=== PATIENT | female | born 1950 | race Hispanic/Latino ===

== ENCOUNTER 2025-01-10 06:06 | Observation (INO) | payer OTHER ==
[2025-01-05 09:04] LABS: IMMATURE GRANULOCYTE ABSOLUTE 0.02 K/uL (0-1); NUCLEATED RED BLOOD CELLS 0.0 % (0.0-0.19); PLATELET COUNT (AUTO) 159 K/uL (130-400); RED BLOOD CELL COUNT(AUTO) 2.94 MIL/uL (4.00-5.50); RED CELL DISTRIBUTION WIDTH 17.2 % (11.0-15.5); WHITE BLOOD COUNT (AUTO) 4.8 K/uL (4.8-10.8)
[2025-01-05 09:12] VITALS: BP 117/52; PULSE 53; RESP 15; TEMP 97.6
[2025-01-05 09:12] LABS: CREATININE 4.3 mg/dL (0.5-1.0); GLOMERULAR FILTR. RATE CALC 10.0 mL/min (>90); GLUCOSE,RANDOM 199.0 mg/dL (70-105); SODIUM SERUM 131.0 mmol/L (136-145); UREA NITROGEN, BLOOD 30.0 mg/dL (7-18)
[2025-01-05 09:14] LABS: INR 1.14 (0.85-1.15)
--- NOTE | 2025-01-05 10:09 | HMCIMG ---
CHEST 1VW REASON: PRE OP COMPARISON: None. FINDINGS: Single view of the chest was obtained. Lungs are clear. There is cardiomegaly with left ventricular contour.. There is no pulmonary vascular congestion. Mediastinum and bony thorax appear unremarkable. There are 3 round density seen in left lower chest which may be in the breast. There are surgical clips in the right upper quadrant from prior cholecystectomy. IMPRESSION: 1. Cardiomegaly with no evidence of airspace consolidation or pulmonary venous congestion.. 2. 3 round densities seen in the left lower chest suggesting some breast lesion. I would recommend correlation with mammogram.
--- NOTE | 2025-01-05 10:45 | EKG ---
[facility] Test Date: 2025-01-05 Test Time: 08:50:47 Pat Name: YOAN KELLY Department: [facility] Room: Gender: F Lawyers: [id number] : 1950 Requested By: GABBY DEMPSEY Order Number: [id number] Reading MD: Carl Hughes Measurements Intervals [place] Rate: 51 P: 0 ID: [id number] QRS: -54 QRSD: 158 T: -70 QT: 523 QTc: 483 Interpretive Statements Sinus rhythm Prolonged ID interval RBBB and LAFB Abnrm T, consider ischemia, anterolateral lds No previous ECG available for comparison Electronically Signed On 01-06-2025 02:16:03 CDT by Carl Hughes Please click the below link to view image of tracing.
--- NOTE | 2025-01-09 13:53 | NUR ---
REPORT DR DEMPSEY REVIEWED BMP/CBC/BNP/CXR. OK TO PROCEED. PT TO FOLLOW UP WITH PCP IN REFERENCE TO CXR
[~2025-01-10] VITALS: Ht 157.5 cm; Wt 85.6 kg
[2025-01-10] VITALS (13 sets, daily range): BP systolic 112–137; BP diastolic 46–66; PULSE 51–79; RESP 9–18; TEMP 97–98.8; O2SAT 98–99
[~2025-01-10 06:06] MED LIST: AMLO-257 PO; FEXO1TAB8 PO; LINA145C PO; LOSA50TA64 PO; METO25TA3 PO; MONT-39 PO; ROSU10TA72 PO; SEVE800T7 PO
[2025-01-10] MEDS: 0.9% NACL 500ML IV.SOLN 500 ML IV SCH (06:15)
[2025-01-10] MEDS ORDERED: LIDOCAINE HCL 400MG/20ML VIAL ONE (07:14)
[2025-01-10] MEDS ORDERED: NITROGLYCERIN 50MG VIAL ONE (07:15)
[2025-01-10] MEDS ORDERED: HEParin-NS 1,000 UNIT/500 ML 500 ML IV ONE (07:15)
[2025-01-10] MEDS ORDERED: IOHEXOL 350 MG/ML 100ML INFUS..BTL IV ONE (07:18)
[2025-01-10] MEDS ORDERED: SODIUM BICARB 50MEQ 50ML VIAL 50 ML ONE (07:18)
[2025-01-10] MEDS ORDERED: MIDAZOLAM HCL 1 MG/ML 2ML VIAL ONE (07:42)
[2025-01-10] MEDS ORDERED: IOHEXOL-350 50ML VIAL IV ONE (08:13)
[2025-01-10] MEDS ORDERED: IOHEXOL-350 75 ML VIAL IV ONE (08:14)
--- NOTE | 2025-01-10 09:02 | PRN ---
Right And Left Heart Catheterization, Left Ventricular Cine Angiogram And Coronary Arteriogram Indication: Dyspnea And Chest Pressure, Left Main Calcification Technique: Patient was brought to the lab in a fasting state after informed consent and sedated with 1 mg Versed and 50 mcg fentanyl, each of which was repeated as needed. See computerized notes for details of conscious sedation and monitoring. Under local anesthesia with 1% lidocaine using fluoroscopic and ultrasound guidance with micropuncture technique the right common femoral artery and vein were entered percutaneously and a seven Kenyan sheath was inserted into the vein, a six Kenyan sheath into the artery. Right heart catheterization was carried out with a seven Kenyan Effie-Roberta S curve balloon tip catheter and pressures were measured at RA, RV, PA and PCW positions. The catheter was then removed. A six Kenyan angled pigtail was used to cannulate the left ventricle and left ventricular cine angiography was performed in [place] projection after measurement of pressures. A pullback recording was then obtained. An exchange was made for a six Kenyan 4 cm left Jose which was used to engage the left main obtain left coronary angiograms in multiple projections. An exchange was made for a six Kenyan 4 cm right Jose which was imaging engage the right coronary and obtain right coronary angiograms in multiple projections. At the conclusion of the procedure venotomy was closed with Vascade and arteriotomy was closed with Angio-Seal. No complications occurred. The patient was transferred to the room in stable condition. Results: Hemodynamics: LVEDP was 20 before angiography on 12 after. LV systolic pressure was 122 with aortic root pressure 123/37, mean 67. Mean pulmonary capillary wedge pressure was 12 with A-wave seven and V-wave 22. Pulmonary artery pressure was 36/14, mean 20. Right ventricular systolic pressure was 36 Mean right atrial pressure was 16 with A-wave 13 and V-wave 24. Ventriculography: Left ventricular cine angiography demonstrated normal left ventricular size and shape with symmetric wall motion and normal mitral valve function. Ejection fraction is estimated 71% by planimetry. Angiography: This is a right-dominant system. The right coronary is a large diameter vessel that supplies a posterior descending and a posterolateral. This vessel is notable for segmental calcified 30% plaque at the acute margin but there were no high-grade stenoses. The left main is large diameter and heavily calcified and this calcified lesion extends into the origin of the LAD and circumflex. The left main is narrowed by greater than 80%, the LAD by in the circumflex by 90%. The left anterior descending, apart from the ostial 80% lesion mentioned above, is also notable for a 70% ostial stenosis of the 1st diagonal branch. Otherwise the LAD system is calcified but free of additional high-grade disease. The circumflex supplies a sizable 1st obtuse marginal with heavy calcified 90% segmental ostial stenosis. The 2nd obtuse marginal is small in the terminal branch of the circumflex is medium size and courses over the inferolateral wall toward the apex. Conclusions: Left main and two-vessel coronary disease. Chronic diastolic heart failure. Prominent V-wave on the right atrium pressure suggest severe tricuspid regurgitation. V-wave on PCW tracing is not associated with significant mitral regurgitation GABBY DEMPSEY MD Jan 10, 2025 09:02
--- NOTE | 2025-01-10 09:49 | NUR ---
Patient remains stable with VS wnl. SB evident with cardiac monitors intact. Right Femoral site clean, dry without sign of bleeding, bruising of hematoma. Pulses intact to BLE's. Patient denies c/o pain or distress. Notified HS and Registration of admission status. Mark Alvarez updated in full. SR's up x 2. Call light in reach. Addendum: 01/10/25 at 1012 by GUANAKITO BROOKS RN RN Reported off in full to Jarad Mueller RN. [facility] room 225.
--- NOTE | 2025-01-10 12:41 | HP ---
[facility] HISTORY AND PHYSICAL Date of Service: Jan 10, 2025 Time of Service: 12:32 HISTORY OF PRESENT ILLNESS: Date of service: 01/10/2025 patient [place] [facility] [place] [facility], This is 74-year-old female with underlying history of ESRD maintained on hemodialysis for the past six years, hypertension, hyperlipidemia, type 2 diabetes mellitus, peripheral vascular disease, carotid artery disease, chronic right shoulder pain with right shoulder rotator cuff injury over the last one year, who is currently admitted status post coronary angiogram and cardiac catheterization by Dr. Thayer. Patient has underlying history of crescendo pattern of dyspnea and fatigue on exertion over the last 5-6 months. Patient states that she has only able to ambulate less than a block before she gets short of breath. She denies any significant chest pain or chest pressure, dizziness, syncope or presyncope. She uses a walker to ambulate. Patient has been on hemodialysis therapy over the last six years. She is followed by Dr. Palmer with Nephrology as outpatient, she has been maintained on Thursday, Thursday, Thursday hemodialysis. Last HD session was yesterday. Patient denies any previous history of seizures, or stroke. Patient on cardiac catheterization was found to have left main and two-vessel significant coronary artery disease with chronic diastolic heart failure. There was also possible suggestion of severe tricuspid regurgitation. Patient will be admitted under hospitalist service and consultation with Cardiovascular surgery has been requested. REVIEW OF SYSTEMS CONSTITUTIONAL: Denies fevers, chills, or night sweats. No unintentional weight loss reported. NEUROLOGICAL: Denies headache, amaurosis fugax, motor weakness, sensory deficit, vertigo/spinning sensation, gait abnormalities, or tremors. ENT: No hearing loss, otalgia, otorrhea, rhinitis, rhinorrhea, hoarseness, or sore throat. CARDIOVASCULAR: Recent history of dyspnea on exertion with minimal ambulation, denies chest pain or chest pressure, denies any syncope or presyncopal symptoms PULMONARY: Denies any shortness of breath, cough, phlegm/sputum, hemoptysis, pleuritic chest pain. SLEEP: Denies morning headaches, daytime somnolence or napping. Denies difficulty falling asleep, staying asleep, waking from sleep. Denies knowledge of snoring. GASTROINTESTINAL: Denies any type of dysphagia to either liquids or solids. Denies nausea, vomiting, pyrosis, early satiety, abdominal pain, diarrhea, constipation, or changes in stool consistency or caliber. Denies coffee-ground emesis, hematemesis, hematochezia, or melanotic stools. GENITOURINARY: Denies frequency, urgency, nocturia, hematuria or incontinence (Storage/Irritative symptoms.) Low urinary stream, straining to void, urinary intermittency or hesitancy, splitting of the voiding stream, terminal dribbling. ENDOCRINOLOGIC: Denies polyuria, polydipsia, polyphagia or heat/cold intolerances. HEMATOLOGIC: Denies thrombophilia/previous clots, or coagulopathy/bleeding disorders. ONCOLOGIC: Denies personal history of malignancy. DERMATOLOGIC: Denies rashes or pruritus. PSYCHIATRIC: Denies any suicidal or homicidal ideation. Denies hallucinations. PAST MEDICAL HISTORY: Previous medical history of hypertension, ESRD, seasonal allergies, hyperlipidemia, obstructive sleep apnea not on CPAP therapy, osteoarthritis, type 2 diabetes mellitus, peripheral vascular disease, vitamin B12 deficiency, degenerative joint disease of lumbar spine, osteopenia, carotid artery disease, recent history of abnormal coronary CT angiography which was done in 2024 PAST SURGICAL HISTORY: x1, left forearm AV fistula placement six years ago, history of cholecystectomy PAST SOCIAL HISTORY: Denies active smoking or alcohol consumption FAMILY HISTORY: Reports family history diabetes and hypertension and coronary artery disease in father and mother Allergies: No known drug allergies Home medications: Outpatient home medications include amlodipine 5 mg daily, Heydi once a day, mcg daily, losartan 50 mg daily, metoprolol mg at bedtime, montelukast sodium 10 mg at bedtime, rosuvastatin 10 mg at bedtime, sevelamer 2400 mg p.o. t.i.d. meals Coded Allergies: No Known Drug Allergies (Unverified Allergy, Unknown, 01/05/25) PHYSICAL EXAM GENERAL APPEARANCE: The patient is awake, alert, and oriented, in no acute cardiopulmonary distress. NEUROLOGICAL: Cranial nerves II-XII grossly intact. Neurological examination is nonfocal for the patient HEENT: Face is symmetric. Pupils are equal and reactive. Extraocular movements are intact. NECK: Supple. No JVD. No thyromegaly. No submental, submandibular, pre- /postauricular, occipital or supraclavicular lymphadenopathy. CHEST: Normal chest expansion. No Telemetry. LUNGS: Absence of any rales, rhonchi or any wheezing. CARDIOVASCULAR: Regular. S1 and S2 normal. No appreciable rubs, murmurs or gallops. ABDOMEN: Soft, nontender, and nondistended. There is no rebound, voluntary guarding, or rigidity. : Deferred. No Phillips. EXTREMITIES: Non-edematous and not cyanotic. No clubbing. Left forearm with AV fistula noted with bruit and thrill, trace edema noted of the lower extremities SKIN: No skin breakdown. Vital Sign (Last 24 Hours) 01/10/25 01/10/25 09:15 10:00 Temp 97.0 Pulse 53 Resp 10 B/P (MAP) 120/48 Pulse Ox 100 O2 Delivery Room Air LABS: Laboratory: Test 01/10/25 11:23 Range/Units Whole Blood Glucose 119 H 70-110 MG/DL Current Medications Medications (Trade) Dose Ordered Sig/Dany Route PRN Reason Start Time Stop Time Status Last Admin Dose Admin Acetaminophen (TYLenol 325MG TAB) 650 mg Q6H PRN PO MILD PAIN (1-3) 01/10/25 12:30 02/09/25 12:29 UNV Amlodipine Besylate (NorvASC 5MG TAB) 5 mg NOON PO 01/11/25 12:00 02/10/25 11:59 UNV Losartan Potassium (CozAAR 50 mg TAB) 50 mg DAILY PO 01/11/25 09:00 02/10/25 08:59 UNV Metoprolol Succinate (TopROL XL) 25 mg HS PO 01/10/25 21:00 02/09/25 20:59 UNV Miscellaneous Medication (Fexofenadine/ Pseudoephedrine (Heydi-D 24 Hour Tablet)) 1 each DAILY PO 01/11/25 09:00 02/10/25 08:59 UNV Miscellaneous Medication (Linaclotide (Linzess)) 72 mcg DAILY PO 01/11/25 09:00 02/10/25 08:59 UNV Miscellaneous Medication (Rosuvastatin Calcium ) 10 mg HS PO 01/10/25 21:00 02/09/25 20:59 UNV Miscellaneous Medication (Sevelamer Carbonate (Renvela)) 2,400 mg TIDMEALS PO 01/10/25 17:00 02/09/25 16:59 UNV Montelukast Sodium (SinguLAIR) 10 mg HS PO 01/10/25 21:00 02/09/25 20:59 UNV Ondansetron HCl (zoFRAN 4MG INJ) 4 mg Q6H PRN IVP NAUSEA/VOMITING 01/10/25 12:30 02/09/25 12:29 UNV Sodium Chloride 500 ml @ 0 mls/hr Q0M IV 01/10/25 06:30 02/09/25 06:29 01/10/25 06:15 20 MLS/HR DIAGNOSTICS / RADIOLOGY: None ASSESSMENT: Left main and significant two-vessel coronary artery disease status post cardiac catheterization/coronary angiogram by Dr. Thayer, Recent history of dyspnea on exertion with minimal ambulation, with recent abnormal outpatient coronary CT angiogram, POA History of hypertension, POA ESRD on Thursday, Thursday, Thursday hemodialysis, POA Hyperlipidemia, POA Peripheral vascular disease, POA Vitamin B12 deficiency, POA History of carotid artery disease, POA History of LAURA not on outpatient CPAP treatment, POA Obesity, POA History of vitamin B12 deficiency, POA History of chronic right shoulder pain from rotator cuff injury for about one year's, POA PLAN: Patient will continue with close admission in P[facility]U under telemetry monitoring Consultation with Cardiovascular surgery has been requested for evaluation of left main coronary artery disease and significant two-vessel CAD Patient to continue with scheduled hemodialysis session Continue with home medications including losartan 50 mg daily, metoprolol succinate 25 mg at bedtime, and amlodipine5 mg daily Continue with home dose of Crestor Continue with post cardiac catheterization recommendations by Dr. Thayer Consultation with Nephrology will be requested for HD therapy while inpatient Resume home medications once available All labs will be repeated in the morning Patient will be placed of fluid restrictions of 1.5 L daily We will obtain a chest x-ray for the morning as well as a 2D echocardiogram Prognosis: Guarded Plan of care was discussed with patient at bedside, Micha Garcia MD Advanced Care Planning: Which of the following were discussed: Hospice care: Yes __ No __ Therapeutic options: Yes __ No __ Advance directives: Yes __ No __ Other discussions: Discussed with who?: (Patient, family or surrogates) Voluntary nature of this service was explained to the patient? Yes __ No __ Amount of time spent: (can be from 16 to 44 minutes) Reviewed by Physician?: Yes __ No __ (if this service was performed by NPP) MICHA GARCIA MD Jan 10, 2025 12:41
--- NOTE | 2025-01-10 15:36 | HMCSR ---
APPROVED REPORT EXAM: Two-dimensional and M-mode echocardiogram with Doppler and color Doppler. INDICATION ICD: Coronary artery Disease 2D Dimensions RVDd5.8 cmLVEF(%)61.2 (>50%)LVED Vol(simp.)69.0 mL IVSd1.1 (0.7-1.1cm)FS(%)33 %LVES Vol(simp.)27.0 mL LVDd5.4 (3.8-5.6cm)LA (2D)5.7 (1.6-4.0cm)LVEF(%, simp.)61 % PWd1.3 (0.7-1.1cm)Ao Root(2D)2.8 (2.0-3.7cm)LA ESV INDEX (BP)51.53 mL/m2 IVSs1.1 cmLVOT diam2.3 (1.8-2.4cm) LVDs3.6 (2.5-4.0cm)IVC diam3.6 cm PWs1.6 cm Deformation Strain Apical 4-18.0 % Apical 2-18.0 % Apical 3-15.0 % Global Strain-17.0 % M-Mode Dimensions EPSS0.8 cm LA (MM)5.6 (1.6-4.0cm) Ao Root(MM)2.5 (2.0-3.7cm) Aortic Valve AoV Vmax2.1 m/Imelda Peak GR17.2 mmHgLVOT Vmax1.1 m/s AoV VTI0.4 mAo Mean GR9.0 mmHgLVOT VTI0.28 m ADELINA (VMAX)2.20 cm2AVA (VTI) 2.6 cm2 Mitral Valve MV E Kmoi587.6 cm/sDECEL Mnru908 ms MV A Vmax50.4 cm/sP 1/2 T80 ms E/A ratio2.4MVA (PHT)2.8 cm2 TDI E/E' Hwegxf60.8E/E' Rqxvxhv76.4 Medial E' Peak V5.21 cm/sLateral E' Peak V8.84 cm/s Pulmonary Valve PV Vmax1.1 m/sPV VTI0.29 mPV Mean GR2.3 mmHg PV Peak GR4.9 mmHgPI End Yael. Dre 112.7 cm/s Tricuspid Valve TR Vmax1.9 m/sRAP (EST) 15 neCoSERH44.4 mmHg TR Peak GR15.4 mmHg Left Ventricle Left ventricular cavity size is normal. There is normal left ventricular wall thickness. LVEF is 60-6 5%. Stage III diastolic dysfunction. Right Ventricle The right ventricle is severely dilated. LASVI 52mL/m2 The right ventricular systolic function is nor mal. Atria The left atrium is severely dilated. Cannot exclude PFO by color doppler. The right atrium is severel y dilated. Aortic Valve The aortic valve is calcified but opens well. No aortic regurgitation is present. There is no aortic valvular stenosis. Mitral Valve The mitral valve is mildly thickened. There is mild mitral annular calcification. Mitral regurgitatio n is mild. There is no mitral valve stenosis. Tricuspid Valve The tricuspid valve leaflets appear normal. There is severe tricuspid valve regurgitation by color do ppler. CW Doppler of the tricuspid regurgitation jet showing a low velocity triangular shape, typical of severe TR. RVSP 30mmHg. Pulmonic Valve The pulmonary valve is normal in structure and function. There is trace pulmonic valvular regurgitati on. Great Vessels The aortic root is normal in size. IVC is severely dilated and collapses <50% with inspiration. Pericardium No pericardial effusion. Other Information Quality : Technically difficult study due to body habitus Conclusion Left ventricular cavity size is normal. LVEF is 60-65%. Stage III diastolic dysfunction. The right ventricle is severely dilated. LASVI 52mL/m2 The right ventricular systolic function is normal. The left atrium is severely dilated. The right atrium is severely dilated. Cannot exclude PFO by color doppler. Mitral regurgitation is mild. There is severe tricuspid valve regurgitation by color doppler. CW Doppler of the tricuspid regurgi tation jet showing a low velocity triangular shape, typical of severe TR. RVSP 30mmHg. IVC is severely dilated and collapses <50% with inspiration. No pericardial effusion.
[2025-01-10] MEDS ORDERED: NITROGLYCERIN 0.4 MG SL TAB SL PRN (19:30)
[2025-01-10] MEDS ORDERED: GLUCAGON 1MG KIT 1 MG ML IM PRN (20:30)
[2025-01-10] MEDS ORDERED: DEXTROSE 50%-WATER 50 ML DISP.SYRIN IV PRN (20:30)
[2025-01-10] MEDS: LORATAdine/pseudophEPHEDrine 5/120 MG 1 EACH TAB.SR.12H PO SCH (20:42)
[2025-01-11] VITALS (21 sets, daily range): BP systolic 115–160; BP diastolic 42–65; PULSE 51–82; RESP 16–18; TEMP 97.8–98.6; O2SAT 99
[2025-01-11 05:34] LABS: NUCLEATED RED BLOOD CELLS 0.0 % (0.0-0.19); PLATELET COUNT (AUTO) 177.0 K/uL (130-400); RED BLOOD CELL COUNT(AUTO) 2.75 MIL/uL (4.00-5.50); RED CELL DISTRIBUTION WIDTH 16.6 % (11.0-15.5); WHITE BLOOD COUNT (AUTO) 5.1 K/uL (4.8-10.8)
[2025-01-11 05:51] LABS: ASPARTATE AMINOTRANSFERASE 21.0 U/L (10-37); CREATININE 6.7 mg/dL (0.5-1.0); GLOMERULAR FILTR. RATE CALC 6.0 mL/min (>90); GLUCOSE,RANDOM 97.0 mg/dL (70-105); LDL DIRECT 17.0 mg/dL (0-99); SODIUM SERUM 127.0 mmol/L (136-145); TOTAL PROTEIN, SERUM 7.8 g/dL (6.0-8.3); UREA NITROGEN, BLOOD 55.0 mg/dL (7-18)
--- NOTE | 2025-01-11 07:15 | HMCIMG ---
EXAM: CR Chest, single view. CLINICAL HISTORY: Assess for any infiltrates. COMPARISON: Prior chest radiograph dated January 05, 2025. FINDINGS: Increased left retrocardiac opacity, probable left lower lobe and lingular infiltrates. No evidence of pleural effusion or pneumothorax. Mild cardiomegaly. No acute osseous abnormality. Mild degenerative changes in the mid and lower thoracic spine. IMPRESSION: Increased left retrocardiac opacity, probable left lower lobe and lingular infiltrates. No evidence of pleural effusion or pneumothorax. Mild cardiomegaly. Compared to the prior study, there is increased left retrocardiac opacity. /[place]
--- NOTE | 2025-01-11 07:22 | PN ---
Patient denies chest pain or chest pressure, dyspnea or other cardiac symptoms today. Physical exam shows no rales or rhonchi, normal S1 and S2, no edema, no hematoma or other cardiac catheterization complication. I discussed the 80% left main stenosis with the patient and she is not sure she wants to go through surgery. She points to her dialysis, cirrhosis, arthritis, osteoporosis, and chronic debility; she is correct, it would be a high-risk operation with a difficult recovery portion and 5-10% risk of mortality. I discussed this with Dr. Kassie mejia who will see her today. If the patient chooses not to proceed, or if Dr. Deo mejia feels the risk is excessive, she can be discharged with follow up in my office next week. Vitals/Labs Vital Signs Date Time Temp Pulse Resp B/P (MAP) Pulse Ox O2 Delivery O2 Flow Rate FiO2 01/11/25 04:47 98.6 77 18 139/59 100 Room Air 01/10/25 20:00 0 21 Laboratory Tests 01/11/25 05:15 Medications Current Medications Sodium Chloride 500 ml @ 0 mls/hr Q0M IV Last administered on 01/10/25at 06:15; Start 01/10/25 at 06:30; Stop 02/09/25 at 06:29 Lidocaine HCl 20 ml STK-MED ONCE .ROUTE; Start 01/10/25 at 07:14; Stop 01/10/25 at 07:14; Status DC Heparin Sodium (Porcine) 10,000 unit STK-MED ONCE .ROUTE; Start 01/10/25 at 07:14; Stop 01/10/25 at 07:14; Status DC Heparin Sodium/ Sodium Chloride 500 ml @ As Directed STK-MED ONCE IV; Start 01/10/25 at 07:15; Stop 01/10/25 at 07:15; Status DC Nitroglycerin 50 mg STK-MED ONCE .ROUTE; Start 01/10/25 at 07:15; Stop 01/10/25 at 07:15; Status DC Sodium Bicarbonate 50 ml @ As Directed STK-MED ONCE .ROUTE; Start 01/10/25 at 07:18; Stop 01/10/25 at 07:18; Status DC Iohexol 35,000 mg STK-MED ONCE IV; Start 01/10/25 at 07:18; Stop 01/10/25 at 07:18; Status DC Fentanyl Citrate 100 mcg STK-MED ONCE .ROUTE; Start 01/10/25 at 07:42; Stop 01/10/25 at 07:42; Status DC Midazolam HCl 2 mg STK-MED ONCE .ROUTE; Start 01/10/25 at 07:42; Stop 01/10/25 at 07:42; Status DC Iohexol 50 ml STK-MED ONCE IV; Start 01/10/25 at 08:13; Stop 01/10/25 at 08:13; Status DC Iohexol 75 ml STK-MED ONCE IV; Start 01/10/25 at 08:14; Stop 01/10/25 at 08:14; Status DC Amlodipine Besylate 5 mg NOON PO; Start 01/11/25 at 12:00; Stop 02/10/25 at 11:59 Losartan Potassium 50 mg DAILY PO; Start 01/11/25 at 09:00; Stop 02/10/25 at 08:59 Metoprolol Succinate 25 mg HS PO; Start 01/10/25 at 21:00; Stop 02/09/25 at 20:59 Montelukast Sodium 10 mg HS PO Last administered on 01/10/25at 20:42; Start 01/10/25 at 21:00; Stop 02/09/25 at 20:59 Loratadine/ Pseudoephedrine Sulfate 1 each BID PO Last administered on 01/10/25at 20:42; Start 01/10/25 at 21:00; Stop 02/09/25 at 20:59 Home Med (Linaclotide (Linzess) 72 MCG) DAILY PO; Start 01/11/25 at 09:00; Stop 02/10/25 at 08:59 Atorvastatin Calcium 40 mg HS PO Last administered on 01/10/25at 20:42; Start 01/10/25 at 21:00; Stop 02/09/25 at 20:59 Sevelamer HCl 2,400 mg TIDMEALS PO Last administered on 01/10/25at 17:00; Start 01/10/25 at 17:00; Stop 02/09/25 at 16:59 Acetaminophen 650 mg Q6H PRN PO Last administered on 01/10/25at 20:42; Start 01/10/25 at 12:30; Stop 02/09/25 at 12:29 Ondansetron HCl 4 mg Q6H PRN IVP; Start 01/10/25 at 12:30; Stop 02/09/25 at 12:29 Vitamin B Complex/ Vit C/Folic Acid 1 cap DAILY PO; Start 01/11/25 at 09:00; Stop 02/10/25 at 08:59 Nitroglycerin 0.4 mg AD PRN SL; Start 01/10/25 at 19:30; Stop 02/09/25 at 19:29 Dextrose 50 ml AD PRN IV; Start 01/10/25 at 20:30; Stop 02/09/25 at 20:29 Glucagon 1 mg AD PRN IM; Start 01/10/25 at 20:30; Stop 02/09/25 at 20:29 GABBY DEMPSEY MD Jan 11, 2025 07:22
[2025-01-11] MEDS: Vitamin B Complex/Vit C/Folic Acid PO SCH (08:20)
[2025-01-11] MEDS: (Linaclotide (Linzess) 72 MCG) PO SCH (08:21)
[2025-01-11] MEDS: amLODIPine 5 MG TAB PO SCH (11:40)
--- NOTE | 2025-01-11 13:02 | PN ---
SUBJECTIVE: The patient is a 74-year-old female with hypertension, diabetes mellitus, hyperlipidemia, end-stage renal disease (on hemodialysis), liver cirrhosis and positive family history of coronary artery disease, who has been having increasing dyspnea on exertion. She was evaluated by Cardiology. She underwent an echocardiogram, which reveals a normal ejection fraction of 65%, but severe tricuspid regurgitation. The patient was taken for an elective heart catheterization yesterday where she was found to have severe calcified distal left main and proximal circumflex and left anterior descending artery stenosis. The patient also had disease within her obtuse marginal coronary artery. Her right coronary artery had no significant obstructive lesions. Cardiovascular surgery was consulted for coronary artery bypass grafting. OBJECTIVE: VITAL SIGNS: On exam, her vital signs reveal temperature of 98.6, pulse is 77, respirations 18, blood pressure is 139/79, oxygen saturation 100% on room air. HEENT: Reveals normocephalic, atraumatic. Extraocular movements intact. HEART: S1 and S2, and regular with a murmur on her right upper sternal border. LUNGS: Unlabored at rest on room air. ABDOMEN: Obese. It is difficult to tell whether she has an ascitic fluid waveform. EXTREMITIES: She has a left forearm AV graft without aneurysmal changes. LABORATORY DATA: Her white cell count is 5100, hemoglobin is 9.0. BUN is 53, creatinine is 6.7, albumin is 2.8, bilirubin is 0.5. Platelet count is 177. DIAGNOSTIC DATA: Her chest x-ray shows mild cephalization of her pulmonary arteries. ASSESSMENT AND PLAN: Left main coronary artery disease. I discussed the risks and benefits of surgery. The patient, however, has refused surgery and wishes to be treated medically. TID: [id number] RECEIPT: [id number]
--- NOTE | 2025-01-11 13:46 | NUR ---
DCP:HOME Pt currently lives alone in her home. Pt does use a walker and wheelchair at home. Pt has a provider that goes to her home 20hrs a week to assist with all ADLs, home management, and meals. Pt is a pt at [facility] and goes [facility]. PCP is Dr. Aydin Sesay and uses [facility] for any RX needs. At [place] pt will want to go home and family can assist with transportation. Addendum: 01/11/25 at 1350 by ANGÉLICA HERRERA SS Amended: Links added.
[2025-01-11] MEDS: 0.9%NACL 1000ML 1,000 ML IV SCH (15:09)
--- NOTE | 2025-01-11 15:54 | DS ---
Discharge Summary Hospital Course Summary: The patient is a 74-year-old female with a past medical history significant for ESRD on hemodialysis, hypertension, hyperlipidemia, type 2 diabetes mellitus, peripheral vascular disease, and carotid artery disease, who presented with progressive fatigue and shortness of breath. She reported being increasingly tired and unable to carry out her daily activities. She denied chest pain, palpitations, dizziness, or syncope. She was evaluated in the emergency department due to worsening symptoms, and initial workup, including chest X-ray, showed increased left retrocardiac opacity concerning for infiltrates, was given empiric antibiotics ( Rocephin). She underwent coronary angiogram and cardiac catheterization, which revealed left main and two-vessel significant coronary artery disease, in addition to chronic diastolic heart failure. During her hospitalization, echocardiogram revealed stage III diastolic dysfunction with normal left ventricular size, severe biatrial enlargement, severe right ventricular dilation with preserved systolic function, and severe tricuspid regurgitation. Chest imaging confirmed mild cardiomegaly with left- sided infiltrates but no pleural effusion or pneumothorax. She received inpatient hemodialysis and tolerated it well. Cardiology and cardiovascular surgery services were consulted to evaluate her coronary artery disease and tricuspid valve pathology, with CABG recommended as the definitive treatment. The patient was counseled extensively by Dr. Dempsey and Dr. Pierre regarding the need for surgical intervention, the risks of delaying or refusing CABG, and the expected outcomes. Despite this, she refused surgical management. Since no interventional treatment was pursued, she is being discharged with her current medical therapy and after receiving dialysis in the hospital. Patient is being prescribed amoxicillin-clavulanate 500/125 mg orally twice daily for 5 days along with azithromycin 500 mg orally on day 1 followed by 250 mg orally daily on days 25 for treatment of community-acquired pneumonia on an outpatient basis, with instructions to adhere to therapy. She remains at high risk due to her underlying cardiac disease and is being discharged with instructions to follow up closely with cardiology and nephrology. 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 [place] [id number] Patient denies chest pain or chest pressure, dyspnea or other cardiac symptoms today. Physical exam shows no rales or rhonchi, normal S1 and S2, no edema, no hematoma or other cardiac catheterization complication. I discussed the 80% left main stenosis with the patient and she is not sure she wants to go through surgery. She points to her dialysis, cirrhosis, arthritis, osteoporosis, and chronic debility; she is correct, it would be a high-risk operation with a difficult recovery portion and 5-10% risk of mortality. I discussed this with Dr. Kassie mejia who will see her today. If the patient chooses not to proceed, or if Dr. Deo mejia feels the risk is excessive, she can be discharged with follow up in my office next week. Vitals/Labs Vital Signs Date Time Temp Pulse Resp B/P (MAP) Pulse Ox O2 Delivery O2 Flow Rate FiO2 01/11/25 04:47 98.6 77 18 139/59 100 Room Air 01/10/25 20:00 0 21 Laboratory Tests 01/11/25 05:15 Medications Current Medications Sodium Chloride 500 ml @ 0 mls/hr Q0M IV Last administered on 01/10/25at 06:15; Start 01/10/25 at 06:30; Stop 02/09/25 at 06:29 Lidocaine HCl 20 ml STK-MED ONCE .ROUTE; Start 01/10/25 at 07:14; Stop 01/10/25 at 07:14; Status DC Heparin Sodium (Porcine) 10,000 unit STK-MED ONCE .ROUTE; Start 01/10/25 at 07:14; Stop 01/10/25 at 07:14; Status DC Heparin Sodium/ Sodium Chloride 500 ml @ As Directed STK-MED ONCE IV; Start 01/10/25 at 07:15; Stop 01/10/25 at 07:15; Status DC Nitroglycerin 50 mg STK-MED ONCE .ROUTE; Start 01/10/25 at 07:15; Stop 01/10/25 at 07:15; Status DC Sodium Bicarbonate 50 ml @ As Directed STK-MED ONCE .ROUTE; Start 01/10/25 at 07:18; Stop 01/10/25 at 07:18; Status DC Iohexol 35,000 mg STK-MED ONCE IV; Start 01/10/25 at 07:18; Stop 01/10/25 at 07:18; Status DC Fentanyl Citrate 100 mcg STK-MED ONCE .ROUTE; Start 01/10/25 at 07:42; Stop 01/10/25 at 07:42; Status DC Midazolam HCl 2 mg STK-MED ONCE .ROUTE; Start 01/10/25 at 07:42; Stop 01/10/25 at 07:42; Status DC Iohexol 50 ml STK-MED ONCE IV; Start 01/10/25 at 08:13; Stop 01/10/25 at 08:13; Status DC Iohexol 75 ml STK-MED ONCE IV; Start 01/10/25 at 08:14; Stop 01/10/25 at 08:14; Status DC Amlodipine Besylate 5 mg NOON PO; Start 01/11/25 at 12:00; Stop 02/10/25 at 11:59 Losartan Potassium 50 mg DAILY PO; Start 01/11/25 at 09:00; Stop 02/10/25 at 08:59 Metoprolol Succinate 25 mg HS PO; Start 01/10/25 at 21:00; Stop 02/09/25 at 20:59 Montelukast Sodium 10 mg HS PO Last administered on 01/10/25at 20:42; Start 01/10/25 at 21:00; Stop 02/09/25 at 20:59 Loratadine/ Pseudoephedrine Sulfate 1 each BID PO Last administered on 01/10/25at 20:42; Start 01/10/25 at 21:00; Stop 02/09/25 at 20:59 Home Med (Linaclotide (Linzess) 72 MCG) DAILY PO; Start 01/11/25 at 09:00; Stop 02/10/25 at 08:59 Atorvastatin Calcium 40 mg HS PO Last administered on 01/10/25at 20:42; Start 01/10/25 at 21:00; Stop 02/09/25 at 20:59 Sevelamer HCl 2,400 mg TIDMEALS PO Last administered on 01/10/25at 17:00; Start 01/10/25 at 17:00; Stop 02/09/25 at 16:59 Acetaminophen 650 mg Q6H PRN PO Last administered on 01/10/25at 20:42; Start 01/10/25 at 12:30; Stop 02/09/25 at 12:29 Ondansetron HCl 4 mg Q6H PRN IVP; Start 01/10/25 at 12:30; Stop 02/09/25 at 12:29 Vitamin B Complex/ Vit C/Folic Acid 1 cap DAILY PO; Start 01/11/25 at 09:00; Stop 02/10/25 at 08:59 Nitroglycerin 0.4 mg AD PRN SL; Start 01/10/25 at 19:30; Stop 02/09/25 at 19:29 Dextrose 50 ml AD PRN IV; Start 01/10/25 at 20:30; Stop 02/09/25 at 20:29 Glucagon 1 mg AD PRN IM; Start 01/10/25 at 20:30; Stop 02/09/25 at 20:29 GABBY DEMPSEY MD Jan 11, 2025 07:22 Electronically Signed by: GABBY DEMPSEY MD01/11/2522 Electronically Co-Signed by: PROGRESS NOTES Name: YOAN KELLY Acct: [id number] MR: [id number] : 1950 Admit Date: 01/10/25 [place] [address] SUBJECTIVE: The patient is a 74-year-old female with hypertension, diabetes mellitus, hyperlipidemia, end-stage renal disease (on hemodialysis), liver cirrhosis and positive family history of coronary artery disease, who has been having increasing dyspnea on exertion. She was evaluated by Cardiology. She underwent an echocardiogram, which reveals a normal ejection fraction of 65%, but severe tricuspid regurgitation. The patient was taken for an elective heart catheterization yesterday where she was found to have severe calcified distal left main and proximal circumflex and left anterior descending artery stenosis. The patient also had disease within her obtuse marginal coronary artery. Her right coronary artery had no significant obstructive lesions. Cardiovascular surgery was consulted for coronary artery bypass grafting. OBJECTIVE: VITAL SIGNS: On exam, her vital signs reveal temperature of 98.6, pulse is 77, respirations 18, blood pressure is 139/79, oxygen saturation 100% on room air. HEENT: Reveals normocephalic, atraumatic. Extraocular movements intact. HEART: S1 and S2, and regular with a murmur on her right upper sternal border. LUNGS: Unlabored at rest on room air. ABDOMEN: Obese. It is difficult to tell whether she has an ascitic fluid waveform. EXTREMITIES: She has a left forearm AV graft without aneurysmal changes. LABORATORY DATA: Her white cell count is 5100, hemoglobin is 9.0. BUN is 53, creatinine is 6.7, albumin is 2.8, bilirubin is 0.5. Platelet count is 177. DIAGNOSTIC DATA: Her chest x-ray shows mild cephalization of her pulmonary arteries. ASSESSMENT AND PLAN: Left main coronary artery disease. I discussed the risks and benefits of surgery. The patient, however, has refused surgery and wishes to be treated medically. TID: [id number] RECEIPT: [id number] Electronically Signed by: Electronically Co-Signed by: Procedure(s): [facility] [address] [place] [id number] IMAGING REPORT Signed PATIENT: YOAN KELLY MR#: [id number] : 1950 SEX: F AGE: 74 LOCATION: [facility] ORDER 3 STATUS: PRE [facility] [place]#: [id number] SERVICE 1 REASON: PRE OP ORDERING PHYSICIAN: GABBY DEMPSEY MD PROCEDURE: CXR1VW - CHEST 1VW CHEST 1VW REASON: PRE OP COMPARISON: None. FINDINGS: Single view of the chest was obtained. Lungs are clear. There is cardiomegaly with left ventricular contour.. There is no pulmonary vascular congestion. Mediastinum and bony thorax appear unremarkable. There are 3 round density seen in left lower chest which may be in the breast. There are surgical clips in the right upper quadrant from prior cholecystectomy. IMPRESSION: 1. Cardiomegaly with no evidence of airspace consolidation or pulmonary venous congestion.. 2. 3 round densities seen in the left lower chest suggesting some breast lesion. I would recommend correlation with mammogram. DICTATED BY: ADRIANNE TOWNSEND MD DATE: 01/05/251004 ELECTRONICALLY SIGNED BY: ADRIANNE TOWNSEND MD DATE: 01/05/25 [address] [place] [address] [address] IMAGING REPORT Signed PATIENT: YOAN KELLY MR#: [id number] : 1950 SEX: F AGE: 74 LOCATION: [facility] ORDER 1242 STATUS: ADM IN REPORT#: [id number] SERVICE 1234 REASON: CAD, heart clinic to read ORDERING PHYSICIAN: RADHA LEIVA MD PROCEDURE: ECHO CMP - ECHO 2-D COMPLETE APPROVED REPORT EXAM: Two-dimensional and M-mode echocardiogram with Doppler and color Doppler. INDICATION ICD: Coronary artery Disease 2D Dimensions RVDd 5.8 cm LVEF(%) 61.2 (>50%) LVED Vol(simp.) 69.0 mL IVSd 1.1 (0.7-1.1cm) FS(%) 33 % LVES Vol(simp.) 27.0 mL LVDd 5.4 (3.8-5.6cm) LA (2D) 5.7 (1.6-4.0cm) LVEF(%, simp.) 61 % PWd 1.3 (0.7-1.1cm) Ao Root(2D) 2.8 (2.0-3.7cm) LA ESV INDEX (BP) 51.53 mL/m2 IVSs 1.1 cm LVOT diam 2.3 (1.8-2.4cm) LVDs 3.6 (2.5-4.0cm) IVC diam 3.6 cm PWs 1.6 cm Deformation Strain Apical 4 -18.0 % Apical 2 -18.0 % Apical 3 -15.0 % Global Strain -17.0 % M-Mode Dimensions EPSS 0.8 cm LA (MM) 5.6 (1.6-4.0cm) Ao Root(MM) 2.5 (2.0-3.7cm) Aortic Valve AoV Vmax 2.1 m/s Ao Peak GR 17.2 mmHg LVOT Vmax 1.1 m/s AoV VTI 0.4 m Ao Mean GR 9.0 mmHg LVOT VTI 0.28 m ADELINA (VMAX) 2.20 cm2 ADELINA (VTI) 2.6 cm2 Mitral Valve MV E Vmax 118.6 cm/s DECEL Time 246 ms MV A Vmax 50.4 cm/s P 1/2 T 80 ms E/A ratio 2.4 MVA (PHT) 2.8 cm2 TDI E/E' Medial 22.8 E/E' Lateral 13.4 Medial E' Peak V 5.21 cm/s Lateral E' Peak V 8.84 cm/s Pulmonary Valve PV Vmax 1.1 m/s PV VTI 0.29 m PV Mean GR 2.3 mmHg PV Peak GR 4.9 mmHg PI End Yael. Dre 112.7 cm/s Tricuspid Valve TR Vmax 1.9 m/s RAP (EST) 15 mmHg RVSP 30.4 mmHg TR Peak GR 15.4 mmHg Left Ventricle Left ventricular cavity size is normal. There is normal left ventricular wall thickness. LVEF is 60-65%. Stage III diastolic dysfunction. Right Ventricle The right ventricle is severely dilated. LASVI 52mL/m2 The right ventricular systolic function is normal. Atria The left atrium is severely dilated. Cannot exclude PFO by color doppler. The right atrium is severely dilated. Aortic Valve The aortic valve is calcified but opens well. No aortic regurgitation is present. There is no aortic valvular stenosis. Mitral Valve The mitral valve is mildly thickened. There is mild mitral annular calcification. Mitral regurgitation is mild. There is no mitral valve stenosis. Tricuspid Valve The tricuspid valve leaflets appear normal. There is severe tricuspid valve regurgitation by color doppler. CW Doppler of the tricuspid regurgitation jet showing a low velocity triangular shape, typical of severe TR. RVSP 30mmHg. Pulmonic Valve The pulmonary valve is normal in structure and function. There is trace pulmonic valvular regurgitation. Great Vessels The aortic root is normal in size. IVC is severely dilated and collapses <50% with inspiration. Pericardium No pericardial effusion. Other Information Quality : Technically difficult study due to body habitus Conclusion Left ventricular cavity size is normal. LVEF is 60-65%. Stage III diastolic dysfunction. The right ventricle is severely dilated. LASVI 52mL/m2 The right ventricular systolic function is normal. The left atrium is severely dilated. The right atrium is severely dilated. Cannot exclude PFO by color doppler. Mitral regurgitation is mild. There is severe tricuspid valve regurgitation by color doppler. CW Doppler of the tricuspid regurgitation jet showing a low velocity triangular shape, typical of severe TR. RVSP 30mmHg. IVC is severely dilated and collapses <50% with inspiration. No pericardial effusion. DICTATED BY: CRISTI BOYER MD DATE: 01/10/25 1307 ELECTRONICALLY SIGNED BY: CRISTI BOYER MD DATE: 01/10/[address] [facility] [address] [place], [place] [id number] IMAGING REPORT Signed PATIENT: YOAN KELLY MR#: [id number] : 1950 SEX: F AGE: 74 LOCATION: [facility] ORDER 2300 STATUS: ADM IN REPORT#: [id number] SERVICE 06 REASON: cad, assess for any infiltrates ORDERING PHYSICIAN: RADHA LEIVA MD PROCEDURE: CXR1VW - CHEST 1VW EXAM: CR Chest, single view. CLINICAL HISTORY: Assess for any infiltrates. COMPARISON: Prior chest radiograph dated January 05, 2025. FINDINGS: Increased left retrocardiac opacity, probable left lower lobe and lingular infiltrates. No evidence of pleural effusion or pneumothorax. Mild cardiomegaly. No acute osseous abnormality. Mild degenerative changes in the mid and lower thoracic spine. IMPRESSION: Increased left retrocardiac opacity, probable left lower lobe and lingular infiltrates. No evidence of pleural effusion or pneumothorax. Mild cardiomegaly. Compared to the prior study, there is increased left retrocardiac opacity. /[place] DICTATED BY: KEVEN POP Jr., MD DATE: 01/11/25813 ELECTRONICALLY SIGNED BY: KEVEN POP Jr., MD DATE: 01/11/25813 PROCEDURE NOTE Name: YOAN KELLY Acct: [id number] MR: [id number] : 1950 Admit Date: GABBY DEMPSEY MD [facility] [address] [place] [id number] Right And Left Heart Catheterization, Left Ventricular Cine Angiogram And Coronary Arteriogram Indication: Dyspnea And Chest Pressure, Left Main Calcification Technique: Patient was brought to the lab in a fasting state after informed consent and sedated with 1 mg Versed and 50 mcg fentanyl, each of which was repeated as needed. See computerized notes for details of conscious sedation and monitoring. Under local anesthesia with 1% lidocaine using fluoroscopic and ultrasound guidance with micropuncture technique the right common femoral artery and vein were entered percutaneously and a seven Uzbek sheath was inserted into the vein, a six Uzbek sheath into the artery. Right heart catheterization was carried out with a seven Uzbek [place]Roberta S curve balloon tip catheter and pressures were measured at RA, RV, PA and PCW positions. The catheter was then removed. A six Uzbek angled pigtail was used to cannulate the left ventricle and left ventricular cine angiography was performed in DOWNEY projection after measurement of pressures. A pullback recording was then obtained. An exchange was made for a six Uzbek 4 cm left Jose which was used to engage the left main obtain left coronary angiograms in multiple projections. An exchange was made for a six Uzbek 4 cm right Jose which was imaging engage the right coronary and obtain right coronary angiograms in multiple projections. At the conclusion of the procedure venotomy was closed with Vascade and arteriotomy was closed with Angio-Seal. No complications occurred. The patient was transferred to the room in stable condition. Results: Hemodynamics: LVEDP was 20 before angiography on 12 after. LV systolic pressure was 122 with aortic root pressure 123/37, mean 67. Mean pulmonary capillary wedge pressure was 12 with A-wave seven and V-wave 22. Pulmonary artery pressure was 36/14, mean 20. Right ventricular systolic pressure was 36 Mean right atrial pressure was 16 with A-wave 13 and V-wave 24. Ventriculography: Left ventricular cine angiography demonstrated normal left ventricular size and shape with symmetric wall motion and normal mitral valve function. Ejection fraction is estimated 71% by planimetry. Angiography: This is a right-dominant system. The right coronary is a large diameter vessel that supplies a posterior descending and a posterolateral. This vessel is notable for segmental calcified 30% plaque at the acute margin but there were no high-grade stenoses. The left main is large diameter and heavily calcified and this calcified lesion extends into the origin of the LAD and circumflex. The left main is narrowed by greater than 80%, the LAD by in the circumflex by 90%. The left anterior descending, apart from the ostial 80% lesion mentioned above, is also notable for a 70% ostial stenosis of the 1st diagonal branch. Otherwise the LAD system is calcified but free of additional high-grade disease. The circumflex supplies a sizable 1st obtuse marginal with heavy calcified 90% segmental ostial stenosis. The 2nd obtuse marginal is small in the terminal branch of the circumflex is medium size and courses over the inferolateral wall toward the apex. Conclusions: Left main and two-vessel coronary disease. Chronic diastolic heart failure. Prominent V-wave on the right atrium pressure suggest severe tricuspid regurgitation. V-wave on PCW tracing is not associated with significant mitral regurgitation GABBY DEMPSEY MD Jan 10, 2025 09:02 Electronically Signed by: GABBY DEMPSEY MD01/10/25 0902 Electronically Co-Signed by: Assessment/Plan: Discharge Diagnosis: Left main and significant two-vessel coronary artery disease status post cardiac catheterization/coronary angiogram by Dr. Dempsey, , recent abnormal outpatient coronary CT angiogram, POA History of hypertension, POA ESRD on Thursday, Thursday, Thursday hemodialysis, POA Hyperlipidemia, POA Peripheral vascular disease, POA Vitamin B12 deficiency, POA History of carotid artery disease, POA History of LAURA not on outpatient CPAP treatment, POA Obesity, POA History of vitamin B12 deficiency, POA History of chronic right shoulder pain from rotator cuff injury for about one year's, POA Discharge Instructions: DATE OF ADMISSION: 01.10.2025 DATE OF DISCHARGE: 01.11.2025 DISPOSITION: home CONDITION: Medically stable CONSULTANTS: PAM Stearns MD - Cardiothoracic surgery GABBY Arambula MD - Cardiology FOLLOW UP APPOINTMENTS: Follow up with your primary care doctor in 2 to 3 days . Follow up with cardiology to monitor heart failure and coronary artery disease in a week. Follow up with nephrology for ESRD management and dialysis in a week SPECIFIC INSTRUCTIONS: Limit strenuous activity and avoid lifting heavy objects. Use a walker or assistance as needed to prevent falls. Watch for worsening shortness of breath, chest pain, palpitations, dizziness, or syncope. Seek immediate medical attention for chest pain, severe breathlessness, or fainting. Continue renal diet as per dialysis recommendations (low potassium, low phosphorus, fluid restriction 11.5 L/day or per nephrology instructions). Follow a heart-healthy diet: low sodium, avoid excess saturated fat. Take all prescribed medications exactly as directed. Attend all scheduled hemodialysis sessions (Thursday, Thursday, Thursday) PROCEDURES: Coronary angiogram IMAGING: report attached to summary MICROBIOLOGY: report attached to summary HOME MEDICATIONS: see med rec NEW MEDICATIONS: See medication reconciliation EMERGENCY INSTRUCTIONS: The patient was instructed to present to the nearest Emergency department or call 911 once their symptoms like severe chest pain, sudden shortness of breath, fainting, or sudden swelling of legs/feet. Prognosis: Guarded Home Medications: Reported Medications Sevelamer Carbonate (Renvela) 800 Mg Tablet, 2400 MG PO TIDMEALS, TAB 01/05/25 Metoprolol Succinate (Toprol Xl) 25 Mg Tab.er.24h, 25 MG PO HS, TAB 01/05/25 Amlodipine Besylate (Amlodipine Besylate) 5 Mg Tablet, 5 MG PO NOON, TAB 01/05/25 Losartan Potassium (Losartan Potassium) 50 Mg Tablet, 50 MG PO DAILY, TAB 01/05/25 Rosuvastatin Calcium (Rosuvastatin Calcium) 10 Mg Tablet, 10 MG PO HS, TAB 01/05/25 Fexofenadine/Pseudoephedrine (Heydi-D 24 Hour Tablet) 180 Mg-240 Mg Tab.er.24h, 1 EACH PO DAILY, TAB 01/05/25 Linaclotide (Linzess) 145 Mcg Capsule, 72 MCG PO DAILY, CAP 01/05/25 Montelukast Sodium (Montelukast Sodium) 10 Mg Tablet, 10 MG PO HS, TAB 01/05/25 Time spent arranging discharge: 1-30 minutes ATTESTATION BY PHYSICIAN I have seen and examined the patient. I reviewed the documentation, medical decision making, and treatment plan as noted by the resident provider above. I agree with the findings and plan of care. Alberto Choudhury MD, LAKSHMI MD Jan 11, 2025 15:54
[2025-01-11] MEDS ORDERED: AMOX-426 PO (17:29)
[2025-01-11] MEDS ORDERED: AZIT250T9 PO (17:29)
[2025-01-11] MEDS ORDERED: AZIT500T4 PO (17:29)
--- NOTE | 2025-01-11 18:44 | NUR ---
NOTE DISCHARGE INSTRUCTIONS GIVEN TO PATIENT AND SON. ALL QUESTIONS ANSWERED. BOTH STATED UNDERSTANDING.
[2025-01-12 16:30] LABS: HEPATITIS B CORE AB TOTAL Non-Reactive (Nonreactive); HEPATITIS B SURFACE ANTIBODY Positive (Reactive)
== END 2025-01-11 18:40 | disposition home or self-care (01) ==
LOC: DAH 06:06 → DAHIP 06:07 → INTOOBSV 06:07 → DAH 06:07 → 2DH 10:20
PROVIDERS: ADMIT Hospitalist; ATTEND Hospitalist
DX: I25.10 Atherosclerotic heart disease of native coronary artery without angina pectoris (principal); I25.84 Coronary atherosclerosis due to calcified coronary lesion; I13.2 Hypertensive heart and chronic kidney disease with heart failure and with stage 5 chronic kidney disease, or end stage renal disease; E11.22 Type 2 diabetes mellitus with diabetic chronic kidney disease; I50.32 Chronic diastolic (congestive) heart failure; N18.6 End stage renal disease; E78.5 Hyperlipidemia, unspecified; E53.8 Deficiency of other specified B group vitamins; Z79.899 Other long term (current) drug therapy; Z82.49 Family history of ischemic heart disease and other diseases of the circulatory system; Z83.3 Family history of diabetes mellitus; Z90.49 Acquired absence of other specified parts of digestive tract; Z99.2 Dependence on renal dialysis
CPT/HCPCS: 80048; 83880; 85025; 85610; 85730; 36415 ×2; 71045 ×2; 93005; 93460; 99156; 99157 ×2; 82948 ×6; 93306; 93356; 96365; 83036; 80061; 80053; 85027; 86706; 87340; 86704; 90935; C1894 ×3; C1760 ×2; C1769; Q9965; J3010; J3490 ×3; J1644 ×2; J2250; Q9967 ×2; A4215; A4223 ×3; A4222; A4221; A4663; A4216; A4606; G0378 ×4; J0696; G0257